=== PATIENT | male | born 1985 | race Two or more races ===

== ENCOUNTER → 2017-10-02 | Emergency (ER) | payer OTHER ==
[~2017-10-02] VITALS: Ht 177.8 cm; Wt 138.3 kg
[~2017-10-02] MED LIST: INTESTINEX680 MG PO; KETO10TA2 PO; MOTRIN800 MG PO; NORFLEX100MG PO; PREDNISONE5 MG/DOSE- PO
== END | disposition home or self-care (01) ==
LOC: ER 21:12
DX: S30.0XXA Contusion of lower back and pelvis, initial encounter (principal); W18.39XA Other fall on same level, initial encounter; Y93.89 Activity, other specified; Y92.512 Supermarket, store or market as the place of occurrence of the external cause; Y99.8 Other external cause status

== ENCOUNTER 2020-07-09 21:48 | Emergency (ER) | payer OTHER ==
[~2020-07-09] VITALS: Ht 177.8 cm; Wt 145.1 kg
== END 2020-07-09 22:35 | disposition home or self-care (01) ==
LOC: ER 21:48
DX: S01.82XA Laceration with foreign body of other part of head, initial encounter (principal); W18.09XA Striking against other object with subsequent fall, initial encounter; Y93.89 Activity, other specified; Y92.018 Other place in single-family (private) house as the place of occurrence of the external cause; Y99.8 Other external cause status

== ENCOUNTER 2021-05-11 20:28 | Emergency (ER) | payer OTHER ==
[~2021-05-11] VITALS: Ht 177.8 cm; Wt 136.1 kg
== END 2021-05-11 22:56 | disposition home or self-care (01) ==
LOC: ER 20:28
DX: I10 Essential (primary) hypertension (principal); Z03.818 Encounter for observation for suspected exposure to other biological agents ruled out

== ENCOUNTER 2021-09-03 12:57 | Emergency (ER) | payer OTHER ==
[~2021-09-03] VITALS: Ht 177.8 cm; Wt 138.8 kg
[2021-09-03] MEDS ORDERED: KETO10TA2 PO (15:09)
== END 2021-09-03 15:25 | disposition home or self-care (01) ==
LOC: ER 12:57
DX: S69.91XA Unspecified injury of right wrist, hand and finger(s), initial encounter (principal); W23.0XXA Caught, crushed, jammed, or pinched between moving objects, initial encounter; Y92.89 Other specified places as the place of occurrence of the external cause

== ENCOUNTER 2022-11-10 17:25 | Emergency (ER) | payer OTHER ==
[~2022-11-10] VITALS: Ht 177.8 cm; Wt 135.2 kg
== END 2022-11-10 18:28 | disposition home or self-care (01) ==
LOC: ER 17:25
DX: M25.561 Pain in right knee (principal)

== ENCOUNTER 2024-04-21 11:22 | Emergency (ER) | payer OTHER ==
[~2024-04-21] VITALS: Ht 177.8 cm; Wt 133.8 kg
[2024-04-21] MEDS ORDERED: 0.9 % SODIUM CHLORIDE 1,000 ML IV STA (12:32)
[2024-04-21 13:02] LABS: HEMATOCRIT 41.7 % (39.0-48.0); HEMOGLOBIN 14.5 g/dL (13-16.00); MEAN CELL VOLUME 84.8 fL (80.0-100.00); MEAN CORPUSCULAR HEMOGLOBIN 29.5 pg (27.00-32.0); MEAN CORPUSCULAR HGB CONC 34.8 g/dl (32.0-36.0); PLATELET COUNT 236 K/uL (150-450); RED BLOOD COUNT 4.91 M/uL (4.00-6.00); RED CELL DISTRIBUTION WIDTH 14.6 % (11.5-14.5)
[2024-04-21 13:07] LABS: URINE APPEARANCE Clear; URINE BILIRRUBIN Negative (NEGATIVE); URINE BLOOD Trace; URINE COLOR Dark Yellow; URINE GLUCOSE Negative (NEGATIVE); URINE KETONE Trace (NEGATIVE); URINE LEUKOCYTE Negative; URINE NITRATE Negative; URINE PROTEIN 30 (NEGATIVE)
[2024-04-21 13:08] LABS: URINE BACTERIA 18.8 uL (0.0-1933); URINE EPITHELIAL CELLS 9.4 uL (0.0-38.8); URINE RBC 24.5 uL (0.0-20.8); URINE WBC 14.2 uL (0.0-23.2)
[2024-04-21 13:14] LABS: URINE CAST 0.15 uL (0.0-1.40)
[2024-04-21 13:20] LABS: CALCIUM 8.7 mg/dL (8.5-10.1); CREATININE SERUM 1.03 mg/dL (0.70-1.30); GFR 81.26
[2024-04-21 13:26] LABS: POTASSIUM 2.92 mEq/L (3.5-5.1)
[2024-04-21] MEDS ORDERED: POTASSIUM CHLORIDE 10 MEQ CAPSULE PO ONE (13:30)
== END 2024-04-21 15:14 | disposition home or self-care (01) ==
LOC: ER 11:24
PROVIDERS: Emergency Medicine
DX: K52.9 Noninfective gastroenteritis and colitis, unspecified (principal)

== ENCOUNTER 2024-06-02 11:06 | Emergency (ER) | payer OTHER ==
[~2024-06-02] VITALS: Ht 177.8 cm; Wt 137.0 kg
[2024-06-02] MEDS ORDERED: DEXAMETHASONE SODIUM PHOSPHATE 4 MG/ML VIAL IV STA (13:24)
[2024-06-02] MEDS ORDERED: ORPHENADRINE CITRATE 30 MG/ML AMPUL IM STA (13:37)
[2024-06-02] MEDS ORDERED: KETOROLAC TROMETHAMINE 60 MG VIAL IM STA (13:37)
== END 2024-06-02 14:07 | disposition home or self-care (01) ==
LOC: ER 11:08
DX: M54.2 Cervicalgia (principal)